=== PATIENT | female | born 1975 | race American Indian/Alaskan Native ===

== ENCOUNTER 2017-01-15 12:08 | Inpatient (IN) | payer OTHER ==
[2017-01-15] MEDS ORDERED: Sodium Chloride 0.9% 1,000 ML IV ONE (13:10)
[2017-01-15] MEDS ORDERED: Sodium Chloride 0.9% 1,000 ML ONE (13:21)
[2017-01-15 13:34] LABS: CHLORIDE 98 mmol/L (98-107); POTASSIUM 4.1 mmol/L (3.6-5.2); SODIUM 136 mmol/L (132-148)
[2017-01-15 13:35] LABS: BASO % 0.5 % (0.0-2.0); EOS # 0.7 K/uL (0.0-0.7); EOS % 7.6 % (0.0-4.0); HEMATOCRIT 29.5 % (34.0-47.0); LYMPH # 1.5 K/uL (1.0-4.3); LYMPH % 16.8 % (20.0-40.0); MEAN CELL VOLUME 89.8 fL (81.0-99.0); MEAN CORPUSCULAR HEMOGLOBIN 29.3 pg (27.0-31.0); MEAN CORPUSCULAR HGB CONC 32.6 g/dL (33.0-37.0); MEAN PLATELET VOLUME 9.1 fL (7.2-11.7); MONO # 0.6 K/uL (0.0-0.8); MONO % 6.4 % (0.0-10.0); RED CELL DISTRIBUTION WIDTH 12.7 % (11.5-14.5); WHITE BLOOD COUNT 9.1 K/uL (4.8-10.8)
[2017-01-15 13:36] LABS: BILIRUBIN,TOTAL 0.9 mg/dL (0.2-1.3); CARBON DIOXIDE 26 mmol/L (22-30); GFR AFRICAN-AMERICAN > 60
[2017-01-15 13:37] LABS: ALKALINE PHOSPHATASE 61 U/L (38-126); ALT/SGPT 20 U/L (9-52); AST/SGOT 30 U/L (14-36); BLOOD UREA NITROGEN 5 mg/dL (7-17); CALCIUM 8.9 mg/dl (8.6-10.4); GLUCOSE,RANDOM 91 mg/dL (65-105); TOTAL PROTEIN 7.4 g/dL (6.3-8.3)
[2017-01-15 13:43] LABS: INR 1.1
--- NOTE | 2017-01-15 13:47 | C.PDOC ---
History Of Present Illness 41 y/o female presents to ED with complaints of abdominal pain for 1 week. Patient had a hysterectomy and surgery for a small bowel laceration [address] Fields and Elsy. POD [address] Fields, but now abdominal pain increased, distention and N/V with subjective chills have developed. Patient denies fever, diarrhea, blood in stool or any other complaints at this time. Last meal 2 days ago. Time Seen by Provider: 01/15/17 13:04 Chief Complaint (Nursing): Abdominal Pain History Per: Patient History/Exam Limitations: no limitations Onset/Duration Of Symptoms: Days Current Symptoms Are (Timing): Still Present Quality Of Discomfort: "Pain" Associated Symptoms: Nausea, Vomiting. denies: Urinary Symptoms Past Medical History Reviewed: Historical Data, Nursing Documentation, Vital Signs Vital Signs: Last Vital Signs Temp 98.9 F 01/15/17 17:12 Pulse 100 H 01/15/17 17:12 Resp 20 01/15/17 17:12 BP 142/91 H 01/15/17 17:12 Pulse Ox 99 01/15/17 17:12 - Medical History PMH: Obstructive Bowel (SBO) Family History: States: No Known Family Hx - Social History Hx Alcohol Use: Yes Hx Substance Use: No - Immunization History Hx Tetanus Toxoid Vaccination: Yes Hx Influenza Vaccination: No Hx Pneumococcal Vaccination: Yes Review Of Systems Except As Marked, All Systems Reviewed And Found Negative. Constitutional: Positive for: Chills. Negative for: Fever Gastrointestinal: Positive for: Nausea, Vomiting, Abdominal Pain. Negative for : Diarrhea Genitourinary: Negative for: Dysuria Skin: Negative for: Rash Neurological: Negative for: Weakness, Headache Physical Exam - Physical Exam Appears: Other (Moderate Distress) Skin: Warm Head: Atraumatic, Normacephalic Oral Mucosa: Moist Neck: Normal ROM Gastrointestinal/Abdominal: Tenderness, Distention, Other (x5 healed laproscopy sites and midline laparotomy incision with multiple galileo, no fluctuance or erythema ) Extremity: Normal ROM, Capillary Refill (<2 seconds) Neurological/Psych: Oriented x3, Normal Speech ED Course And Treatment - Laboratory Results Result Diagrams: 01/15/17 13:18 01/15/17 13:18 Lab Interpretation: Normal (opiates from Percocet and morp) Urine POC: Negative O2 Sat by Pulse Oximetry: 100 (RA) Pulse Ox Interpretation: Normal - Other Rad L leg US X-Ray: Read By Radiologist (no DVT L femoral vein area.) Progress Note: 1530: NGT to R narmaribel for 100 cc yellowish stomach liquid, well tolerated, no complications Reevaluation Time: 15:32 Reassessment Condition: Improved - Physician Consult Information Outcome Of Conversation: 1300 and 1430 d/w Dr. Fields in ED- ok to admit his service. Medical Decision Making Medical Decision Making: recurrent sbo and typical post-surgical changes from lap hysterectomy converted to open laparotomy for ? bowel injury ? related to post-op ilius vs recurrent sbo. h/o SBO No DVT on L leg US- no lovenox required. Disposition Doctor Will See Patient In The: Hospital Counseled Patient/Family Regarding: Studies Performed, Diagnosis - Disposition Disposition: HOSPITALIZED Disposition Time: 15:33 Condition: GOOD - Clinical Impression Clinical Impression: Small bowel obstruction - Scribe Statement The provider has reviewed the documentation as recorded by the Vicente Trinh All medical record entries made by the Vicente were at my direction and personally dictated by me. I have reviewed the chart and agree that the record accurately reflects my personal performance of the history, physical exam, medical decision making, and the department course for this patient. I have also personally directed, reviewed, and agree with the discharge instructions and disposition.
[2017-01-15] MEDS ORDERED: Iodixanol 320 MG/ML 100 ML BOTTLE IV ONE (14:03)
[2017-01-15 14:27] LABS: RBC URINE 11 /hpf (0-3); URINE BILIRUBIN NEGATIVE (NEGATIVE); URINE BLOOD 1+ (NEGATIVE); URINE COLOR Yellow (YELLOW); URINE GLUCOSE (UA) NORMAL (Normal); URINE KETONE 2+ mg/dL (NEGATIVE); URINE LEUKOCYTE ESTERASE TRACE Leu/uL (Negative); URINE PROTEIN NEGATIVE (NEGATIVE); URINE UROBILINOGEN NORMAL mg/dL (0.2-1.0); WBC URINE 7 /hpf (0-5)
[2017-01-15] MEDS ORDERED: Dextrose 5%/0.9% NS 1,000 ML IV SCH (14:45)
--- NOTE | 2017-01-15 15:12 | CT ---
EXAM: CT Abdomen and Pelvis With Intravenous Contrast CLINICAL HISTORY: 41 years old, female; Pain; Abdominal pain; Generalized; Prior surgery; Surgery date: 3-7 days post-operative; Surgery type: Hysterectomy and sbo one week ago; Additional info: S/P sbo surg and hyst 1 wk ago, ? sbo/abscess TECHNIQUE: Axial computed tomography images of the abdomen and pelvis with intravenous contrast. This CT exam was performed using one or more of the following dose reduction techniques: automated exposure control, adjustment of the mA and/or kV according to patient size, and/or use of iterative reconstruction technique. Coronal and sagittal reformatted images were created and reviewed. CONTRAST: 100 mL of VISIPAQUE administered intravenously. EXAM DATE/TIME: Exam ordered 01/15/2017 1:11 PM COMPARISON: No relevant prior studies available. FINDINGS: Lower thorax: No acute findings. ABDOMEN: Liver: A 1.9 cm hypodense mass in the anterior superior segment of the right lobe of the liver. Suggestion of nodular enhancement is seen along the superior aspect of the mass suggesting this could be a hemangioma. Gallbladder and bile ducts: Unremarkable. No calcified stones. No ductal dilation. Pancreas: Unremarkable. No mass. No ductal dilation. Spleen: Unremarkable. No splenomegaly. Adrenals: Unremarkable. No mass. Kidneys and ureters: The 7 mm hypodense mass is noted in the lower pole of the left kidney. It's too small to fully characterize. Stomach and bowel: There is a loculated fluid collection noted within the pelvis surrounding the sigmoid colon and extending posteriorly into the prerectal soft tissues. The fluid collection measures approximately 6.3 x 6.9 x 3.5 cm. No obstruction. No mucosal thickening. Appendix: No findings to suggest acute appendicitis. PELVIS: Bladder: Unremarkable. No mass. Reproductive: Unremarkable as visualized. ABDOMEN and PELVIS: Intraperitoneal space: There is a trace amount of perihepatic ascites is noted. No free air. Surgical clips are noted within the abdomen Bones/joints: No acute fracture. No dislocation. Soft tissues: There is a healing midline abdominal incision. A 1 cm area of low density is noted along the inferior aspect of the incision suggesting a small amount of fluid within the incision. Surgical galileo are noted along the skin of the anterior abdominal wall at the level of the incision. 2 tiny pockets of gas are noted within the soft tissues of the left groin. This could be iatrogenic. Vasculature: Low density is noted within the left common femoral vein and proximal superficial femoral vein. This could be admixture affect the underlying thrombosis is not excluded No abdominal aortic aneurysm. Lymph nodes: Moderately distended fluid containing small bowel loops are present. Fluid is noted within the cecum and ascending colon. Transverse and descending colon are relatively decompressed. Scattered para-aortic retroperitoneal lymph nodes are noted measuring approximately 7 mm in short axis. IMPRESSION: 1. Abscess in the pelvis. 2. Postsurgical changes in the anterior abdominal wall. Small pocket of fluid measuring approximately 1 cm is noted within the incision along its inferior border 3. Dilated small bowel loops suggest ileus or partial small bowel obstruction 4. A 1.9 cm mass within the liver. Early enhancement suggests the possibility of a hemangioma but I cannot confirm that on this examination. 5. 7 mm hypodense mass in the lower pole the left kidney too small to fully characterize. 6. Possibility of a small deep vein thrombosis in the left common femoral vein and superficial femoral vein. This could also be venous admixture artifacts. Ultrasound might be considered Images were attached to this report and are available at [email or web address]
[2017-01-15] MEDS ORDERED: HYDROmorphone 0.5 mg/0.5 ml ISec IVP PRN (17:17)
--- NOTE | 2017-01-15 17:38 | CP.PCM.HP ---
History of Present Illness - History of Present Illness History of Present Illness: Surgery: Dr. Fields CC: Abd pain HPI: 41F w underwent robotic hysterectomy on 01/08 which was complicated by enterotomy which required ex-lap for closeure. Pt was D/C home on 01/17. Since D/ C, pt stats that she has had constant gas pain from bloating described as pressure. She states that nothing relieves her symptoms. Pt was passing flatus and having BM up until her arrival at hospital today. Last BM was yesterday, which was diarrhea. Pt states that after arriving to ED she became nasuea and had one episode of emesis, NBNB. She denies fever, reports chills. No TAYLOR/ blurred vision, no CP/palpitations, no SOB/cough. In ED CT was done which showed ileus vs SBO and pelvic abscess. NGT was placed in ED as well. PMH: MVP PSH: Hysterectomy Meds: MAR reviewed ALL: gluten Social: Social ETOH, no tobacco/drugs Fhx: non-contributory Present on Admission - Present on Admission Any Indicators Present on Admission: No Review of Systems - Review of Systems All systems: reviewed and no additional remarkable complaints except (HPI) Past Patient History - Infectious Disease Hx of Infectious Diseases: None - Past Social History Smoking Status: Never Smoked - GASTROINTESTINAL Hx Gastrointestinal Disorders: Yes - PSYCHIATRIC Hx Substance Use: No - SURGICAL HISTORY Hx Surgeries: Yes Other/Comment: Myomectomy X2. SBO X2 Meds Allergies/Adverse Reactions: Allergies Allergy/AdvReac Type Severity Reaction Status Date / Time gluten Allergy Verified 01/15/17 12:42 Physical Exam - Constitutional Appears: Non-toxic, No Acute Distress, Other (uncomfortable) - Head Exam Head Exam: ATRAUMATIC, NORMOCEPHALIC - Eye Exam Eye Exam: EOMI - ENT Exam ENT Exam: Mucous Membranes Moist, Normal External Ear Exam - Neck Exam Neck exam: Positive for: Full Rom - Respiratory Exam Respiratory Exam: NORMAL BREATHING PATTERN. absent: Accessory Muscle Use, Respiratory Distress - GI/Abdominal Exam GI & Abdominal Exam: Distended, Firm, Soft, Tenderness. absent: Rebound, Rigid Additional comments: incisions C/D/I - Extremities Exam Extremities exam: Negative for: calf tenderness, pedal edema - Neurological Exam Neurological exam: Alert, Oriented x3 Results - Vital Signs Recent Vital Signs: Last Vital Signs Temp 98.5 F 01/15/17 16:38 Pulse 90 01/15/17 16:38 Resp 20 01/15/17 16:38 BP 131/84 01/15/17 16:38 Pulse Ox 100 01/15/17 16:41 - Labs Result Diagrams: 01/15/17 13:18 01/15/17 13:18 - Imaging and Cardiology CT scan - abdomen Status: Image reviewed by me, Report reviewed by me Assessment & Plan - Assessment and Plan (Free Text) Assessment: 41F s/p hysterectomy w. enterotomy on 01/08, now w. SBO/ileus and pelvic abscess -NPO -To be evaluated by Dr. Dhiraj ALBA in AM -NPO -NGT low intermittent suction, monitor output -IVF -pain meds -zofran -serial abd exams -GI/dvt prophylaxis -d/w attending Robertomaitis PGY2
[2017-01-15] MEDS: Sodium Chloride 0.9% 1,000 ML IV SCH (18:09)
[2017-01-15] MEDS ORDERED: DiphenhydrAMINE 50 mg/ml Inj IVP STA (22:53)
[2017-01-16] MEDS: Sodium Chloride 0.9% 1,000 ML IV SCH ×3 (02:30→20:41)
[2017-01-16 06:48] LABS: CHLORIDE 103 mmol/L (98-107); POTASSIUM 3.6 mmol/L (3.6-5.2); SODIUM 140 mmol/L (132-148)
[2017-01-16 06:50] LABS: ALB/GLOB RATIO 1.1 (1.0-2.1); AST/SGOT 17 U/L (14-36); BILIRUBIN,TOTAL 0.5 mg/dL (0.2-1.3); CARBON DIOXIDE 24 mmol/L (22-30); GFR AFRICAN-AMERICAN > 60
[2017-01-16 06:51] LABS: ALKALINE PHOSPHATASE 59 U/L (38-126); ALT/SGPT 26 U/L (9-52); BLOOD UREA NITROGEN 7 mg/dL (7-17); CALCIUM 8.3 mg/dl (8.6-10.4); GLUCOSE,RANDOM 73 mg/dL (65-105)
[2017-01-16 07:05] LABS: HEMATOCRIT 26.3 % (34.0-47.0); MEAN CELL VOLUME 90.2 fL (81.0-99.0); MEAN CORPUSCULAR HEMOGLOBIN 29.5 pg (27.0-31.0); MEAN CORPUSCULAR HGB CONC 32.7 g/dL (33.0-37.0); MEAN PLATELET VOLUME 8.5 fL (7.2-11.7); RED CELL DISTRIBUTION WIDTH 12.9 % (11.5-14.5); WHITE BLOOD COUNT 8.4 K/uL (4.8-10.8)
[2017-01-16] MEDS ORDERED: Benzocaine/Menthol (Cepacol) Lozenge MT PRN (07:43)
--- NOTE | 2017-01-16 08:57 | CP.PCM.PN ---
Subjective - Date & Time of Evaluation Date of Evaluation: 01/16/17 Time of Evaluation: 08:55 - Subjective Subjective: Surgery: Dr. Fields Pt seen and examined. Had issues w. NGT over night. NGT was pulled back ~10cm, appears to be working. She states that abd pain persists. Nausea improved, no vomiting. Still no flatus/BM. Objective - Vital Signs/Intake and Output Vital Signs (last 24 hours): Temp Pulse Resp BP Pulse Ox 98.6 F 93 H 20 121/68 96 01/16/17 07:17 01/16/17 07:17 01/16/17 07:17 01/16/17 07:17 01/16/17 07:17 Intake and Output: 01/16/17 01/16/17 06:59 18:59 Intake Total 575 920 Output Total 0 25 Balance 575 895 - Medications Medications: Current Medications Acetaminophen (Tylenol 650 Mg Supp) 650 mg VT Q6 PRN PRN Reason: Headache Benzocaine/Menthol (Cepacol Sore Throat) 1 devora MT Q2H PRN PRN Reason: Sore Throat Famotidine (Pepcid) 20 mg IVP Q12 [facility] Last Admin: 01/15/17 21:20 Dose: 20 mg Hydromorphone HCl (Dilaudid) 0.5 mg IVP Q4H PRN PRN Reason: Pain, moderate (4-7) Sodium Chloride (Sodium Chloride 0.9%) 1,000 mls @ 115 mls/hr IV .Q8H42M [facility] Last Admin: 01/16/17 02:30 Dose: 115 mls/hr Ketorolac Tromethamine (Toradol) 30 mg IVP Q6 PRN PRN Reason: Pain, moderate (4-7) Stop: 01/18/17 21:04 Last Admin: 01/16/17 05:44 Dose: 30 mg Ondansetron HCl (Zofran Inj) 4 mg IVP Q4 PRN PRN Reason: Nausea/Vomiting Last Admin: 01/15/17 19:11 Dose: 4 mg - Labs Labs: 01/16/17 06:22 01/16/17 06:22 PT 12.3 SECONDS (9.7-12.2) H 01/15/17 13:18 INR 1.1 01/15/17 13:18 APTT 30 SECONDS (21-34) 01/15/17 13:18 - Constitutional Appears: Non-toxic, No Acute Distress - Head Exam Head Exam: ATRAUMATIC, NORMOCEPHALIC - Eye Exam Eye Exam: EOMI - ENT Exam ENT Exam: Mucous Membranes Moist - Neck Exam Neck Exam: Full ROM - Respiratory Exam Respiratory Exam: NORMAL BREATHING PATTERN. absent: Accessory Muscle Use, Respiratory Distress - GI/Abdominal Exam GI & Abdominal Exam: Soft, Tenderness (diffuse). absent: Distended, Firm, Guarding, Rigid, Rebound Additional comments: incisions C/D/I - Extremities Exam Extremities Exam: absent: Calf Tenderness, Pedal Edema - Neurological Exam Neurological Exam: Alert, Oriented x3 Assessment and Plan - Assessment and Plan (Free Text) Assessment: 41F s/p hysterectomy w. enterotomy on 01/08, now w. SBO/ileus and pelvic abscess -Pt to be seen by Dr. Hearn for possible IR drainage of pelvic collection -continue w. conservative management -NPO -IVF -pain meds -zofran -NGT 25cc/24hr yellowish, continue to monitor -serial abd exams -monitor bowel fxn -d/w attending Zemaitis PGY2
--- NOTE | 2017-01-16 09:19 | PCM.IRP ---
Objective - Vital Signs/Intake and Output Vital Signs (last 24 hours): Vital Signs - 24 hr 01/15/17 01/15/17 01/15/17 14:40 16:38 17:12 Temperature 99.1 F 98.5 F 98.9 F Pulse Rate 87 90 100 H Respiratory 20 20 20 Rate Blood Pressure 122/78 131/84 142/91 H O2 Sat by Pulse 98 98 99 Oximetry 01/15/17 01/16/17 01/16/17 23:40 00:19 07:17 Temperature 99.4 F 98.6 F Pulse Rate 94 H 93 H Respiratory 20 20 Rate Blood Pressure 137/86 121/68 O2 Sat by Pulse 95 100 96 Oximetry Intake and Output (last 12 hours): Intake & Output 01/15/17 01/16/17 01/16/17 18:59 06:59 18:59 Intake Total 575 920 Output Total 0 25 Balance 575 895 Intake: Intake, IV Amount 575 920 Left Antecubital 575 920 Output: Gastric Amount 0 25 Right Nares 0 25 Other: # Voids Urine, Voided 1 - Medications Medications: Current Medications Acetaminophen (Tylenol 650 Mg Supp) 650 mg CA Q6 PRN PRN Reason: Headache Benzocaine/Menthol (Cepacol Sore Throat) 1 devora MT Q2H PRN PRN Reason: Sore Throat Famotidine (Pepcid) 20 mg IVP Q12 [facility] Last Admin: 01/15/17 21:20 Dose: 20 mg Hydromorphone HCl (Dilaudid) 0.5 mg IVP Q4H PRN PRN Reason: Pain, moderate (4-7) Sodium Chloride (Sodium Chloride 0.9%) 1,000 mls @ 115 mls/hr IV .Q8H42M [facility] Last Admin: 01/16/17 02:30 Dose: 115 mls/hr Ketorolac Tromethamine (Toradol) 30 mg IVP Q6 PRN PRN Reason: Pain, moderate (4-7) Stop: 01/18/17 21:04 Last Admin: 01/16/17 05:44 Dose: 30 mg Ondansetron HCl (Zofran Inj) 4 mg IVP Q4 PRN PRN Reason: Nausea/Vomiting Last Admin: 01/15/17 19:11 Dose: 4 mg - Labs Labs (last 24 hours): Laboratory Results - last 24 hr 01/16/17 01/16/17 06:22 06:22 WBC 8.4 RBC 2.91 L Hgb 8.6 L Hct 26.3 L MCV 90.2 MCH 29.5 MCHC 32.7 L RDW 12.9 Plt Count 279 MPV 8.5 Sodium 140 Potassium 3.6 Chloride 103 Carbon Dioxide 24 Anion Gap 16 BUN 7 Creatinine 0.8 Est GFR ( Amer) > 60 Est GFR (Non-Af Amer) > 60 Random Glucose 73 Calcium 8.3 L Total Bilirubin 0.5 AST 17 ALT 26 Alkaline Phosphatase 59 Total Protein 6.0 L Albumin 3.1 L Globulin 2.9 Albumin/Globulin Ratio 1.1 Assessment/Plan - Assessment and Plan (Free Text) Assessment: 41 y/o female with recent history of hysterectomy presents with abdominal pain and no BM. Plan: I have reviewed the CTAP. There is a small fluid collection in the pelvis with loops of large and small bowel within it. The distal colon appears collapsed. In my opinion there is no safe percutaneous window to drain the pelvic fluid. I have spoken to Dr. Rhodes about the case, who agrees. Please consider a repeat CT in 48 hours if conditions deteriorate. Please reconsult as and when required.
--- NOTE | 2017-01-16 10:13 | RAD ---
PROCEDURE: CHEST RADIOGRAPH, 1 VIEW HISTORY: eval ngt placement/SBO COMPARISON: None available. FINDINGS: LUNGS: NG tube extending into the stomach. Mild venous congestion. PLEURA: No pneumothorax or pleural fluid seen. CARDIOVASCULAR: Normal. OSSEOUS STRUCTURES: No significant abnormalities. VISUALIZED UPPER ABDOMEN: Normal. OTHER FINDINGS: None. IMPRESSION: NG tube extending into the stomach. Mild venous congestion.
--- NOTE | 2017-01-16 11:30 | RAD ---
Abdomen single frontal view History: Small bowel obstruction. Comparison: None available. Findings: NG tube extending into the stomach. Multiple dilated loops of small bowel seen within the left saba abdomen. Lobulated radiopaque densities project over the right renal fossa which may represent contrast within the collecting system. Contrast seen within the urinary bladder. Small amount of air seen within the right hemicolon. Surgical clips project over the midline abdomen. Impression: Persistent prominent dilatation of small bowel concerning for obstruction or ileus.
[2017-01-17] MEDS: Sodium Chloride 0.9% 1,000 ML IV SCH ×2 (05:45→14:25)
[2017-01-17 09:00] LABS: HEMATOCRIT 24.8 % (34.0-47.0); MEAN CORPUSCULAR HEMOGLOBIN 29.1 pg (27.0-31.0); MEAN CORPUSCULAR HGB CONC 32.4 g/dL (33.0-37.0); MEAN PLATELET VOLUME 8.5 fL (7.2-11.7)
[2017-01-17 09:08] LABS: CHLORIDE 106 mmol/L (98-107); POTASSIUM 3.6 mmol/L (3.6-5.2); SODIUM 141 mmol/L (132-148)
[2017-01-17 09:10] LABS: GFR AFRICAN-AMERICAN > 60
[2017-01-17 09:11] LABS: BLOOD UREA NITROGEN 7 mg/dL (7-17); CALCIUM 8.3 mg/dl (8.6-10.4); CARBON DIOXIDE 25 mmol/L (22-30); GLUCOSE,RANDOM 76 mg/dL (65-105)
--- NOTE | 2017-01-17 09:18 | CP.PCM.PN ---
Subjective - Date & Time of Evaluation Date of Evaluation: 01/17/17 Time of Evaluation: 09:15 - Subjective Subjective: SURGERY NOTE FOR DR. CHANDRA 41F seen and examined at bedside. Patient states she has now passed gas. Has been tolerating liquid diet. Continues to have spit up. Objective - Vital Signs/Intake and Output Vital Signs (last 24 hours): Temp Pulse Resp BP Pulse Ox 98.3 F 100 H 20 145/91 H 97 01/17/17 00:19 01/17/17 00:19 01/17/17 00:19 01/17/17 00:19 01/17/17 00:19 Intake and Output: 01/17/17 01/17/17 06:59 18:59 Intake Total 1340 Balance 1340 - Medications Medications: Current Medications Acetaminophen (Tylenol 650 Mg Supp) 650 mg NV Q6 PRN PRN Reason: Headache Benzocaine/Menthol (Cepacol Sore Throat) 1 devora MT Q2H PRN PRN Reason: Sore Throat Famotidine (Pepcid) 20 mg IVP Q12 [facility] Last Admin: 01/16/17 21:18 Dose: 20 mg Sodium Chloride (Sodium Chloride 0.9%) 1,000 mls @ 115 mls/hr IV .Q8H42M [facility] Last Admin: 01/17/17 05:45 Dose: 115 mls/hr Ketorolac Tromethamine (Toradol) 30 mg IVP Q6 PRN PRN Reason: Pain, moderate (4-7) Stop: 01/18/17 21:04 Last Admin: 01/16/17 17:32 Dose: 30 mg Ondansetron HCl (Zofran Inj) 4 mg IVP Q4 PRN PRN Reason: Nausea/Vomiting Last Admin: 01/15/17 19:11 Dose: 4 mg - Labs Labs: 01/17/17 08:51 PT 12.3 SECONDS (9.7-12.2) H 01/15/17 13:18 INR 1.1 01/15/17 13:18 APTT 30 SECONDS (21-34) 01/15/17 13:18 - Constitutional Appears: Non-toxic, No Acute Distress - Respiratory Exam Respiratory Exam: Clear to Ausculation Bilateral, NORMAL BREATHING PATTERN - Cardiovascular Exam Cardiovascular Exam: REGULAR RHYTHM, +S1, +S2 - GI/Abdominal Exam GI & Abdominal Exam: Distended, Soft. absent: Firm, Guarding, Rigid, Tenderness Additional comments: NGT in place - Neurological Exam Neurological Exam: Alert, Awake Assessment and Plan - Assessment and Plan (Free Text) Assessment: 41F s/p hysterectomy w. enterotomy on 01/08, now w. SBO/ileus and pelvic fluid collection(not drain-able) -continue w. conservative management -CLD -IVF -pain meds -zofran -serial abd exams -monitor bowel fxn -consider removal of NGT today Further recs discuss with Dr. Donnie Wharton, PGY1
--- NOTE | 2017-01-17 10:42 | VASCLAB ---
PROCEDURE: Left Lower Extremity Venous Duplex Exam. HISTORY: ? L femoral vein DVT (s/p pelvic surgery) PRIORS: None. TECHNIQUE: Left common femoral, femoral, popliteal and posterior tibial, peroneal and great saphenous veins were evaluated. Flow was assessed with color Doppler, compressibility, assessment of phasic flow and augmentation response. Report prepared by Jethro Roman, MITCH, RVT FINDINGS: LEFT: 1. Common Femoral Vein: 1.1. Compressibility - Fully compressible: Thrombus - None : Flow - Phasic: Augmentation -Normal: Reflux - None. 2. Femoral Vein: 2.1. Compressibility - Fully compressible: Thrombus - None: Flow - Phasic: Augmentation -Normal: Reflux - None. 3. Popliteal Vein: 3.1. Compressibility - Fully compressible: Thrombus - None: Flow - Phasic: Augmentation -Normal: Reflux - None. 4. Posterior Tibial Vein: 4.1. Compressibility - Fully compressible: Thrombus - None: Flow - Phasic: Augmentation -Normal: Reflux - None. 5. Peroneal Vein: 5.1. Compressibility - Fully compressible: Thrombus - None: Flow - Phasic: Augmentation -Normal: Reflux - None. 6. Great Saphenous Vein: 6.1. Compressibility - Fully compressible: Thrombus - None: Flow - Phasic: Augmentation - Normal: Reflux - None. OTHER FINDINGS: IMPRESSION: No evidence of deep or superficial vein thrombosis of the left lower extremity with excellent venous flow. Normal valve function noted of the left side. Normal venous flow noted in the right common femoral vein.
[2017-01-18 00:02] VITALS: TEMP 98.4
--- NOTE | 2017-01-18 06:40 | CP.PCM.DIS ---
Provider - Provider Date of Admission: 01/16/17 13:33 Attending physician: Henry Fields Jr, MD Consults: Dr. Chin - INFORMATION SECURITY Time Spent in preparation of Discharge (in minutes): 30 Diagnosis - Discharge Diagnosis (1) Small bowel obstruction Status: Acute Hospital Course - Lab Results Lab Results: Most Recent Lab Values WBC 10.0 K/uL (4.8-10.8) 01/17/17 08:51 RBC 2.76 Mil/uL (3.80-5.20) L 01/17/17 08:51 Hgb 8.0 g/dL (11.0-16.0) L 01/17/17 08:51 Hct 24.8 % (34.0-47.0) L 01/17/17 08:51 MCV 90.0 fL (81.0-99.0) 01/17/17 08:51 MCH 29.1 pg (27.0-31.0) 01/17/17 08:51 MCHC 32.4 g/dL (33.0-37.0) L 01/17/17 08:51 RDW 13.0 % (11.5-14.5) 01/17/17 08:51 Plt Count 292 K/uL (130-400) 01/17/17 08:51 MPV 8.5 fL (7.2-11.7) 01/17/17 08:51 Neut % (Auto) 68.7 % (50.0-75.0) 01/15/17 13:18 Lymph % (Auto) 16.8 % (20.0-40.0) L 01/15/17 13:18 [place] % (Auto) 6.4 % (0.0-10.0) 01/15/17 13:18 Eos % (Auto) 7.6 % (0.0-4.0) H 01/15/17 13:18 Baso % (Auto) 0.5 % (0.0-2.0) 01/15/17 13:18 Neut # 6.2 K/uL (1.8-7.0) 01/15/17 13:18 Lymph # 1.5 K/uL (1.0-4.3) 01/15/17 13:18 [place] # 0.6 K/uL (0.0-0.8) 01/15/17 13:18 Eos # 0.7 K/uL (0.0-0.7) 01/15/17 13:18 Baso # 0.0 K/uL (0.0-0.2) 01/15/17 13:18 PT 12.3 SECONDS (9.7-12.2) H 01/15/17 13:18 INR 1.1 01/15/17 13:18 APTT 30 SECONDS (21-34) 01/15/17 13:18 Sodium 141 mmol/L (132-148) 01/17/17 08:51 Potassium 3.6 mmol/L (3.6-5.2) 01/17/17 08:51 Chloride 106 mmol/L (98-107) 01/17/17 08:51 Carbon Dioxide 25 mmol/L (22-30) 01/17/17 08:51 Anion Gap 14 (10-20) 01/17/17 08:51 BUN 7 mg/dL (7-17) 01/17/17 08:51 Creatinine 0.7 MG/DL (0.7-1.2) 01/17/17 08:51 Est GFR ( Amer) > 60 01/17/17 08:51 Est GFR (Non-Af Amer) > 60 01/17/17 08:51 Random Glucose 76 mg/dL (65-105) 01/17/17 08:51 Calcium 8.3 mg/dl (8.6-10.4) L 01/17/17 08:51 Total Bilirubin 0.5 mg/dL (0.2-1.3) 01/16/17 06:22 AST 17 U/L (14-36) 01/16/17 06:22 ALT 26 U/L (9-52) 01/16/17 06:22 Alkaline Phosphatase 59 U/L (38-126) 01/16/17 06:22 Total Protein 6.0 g/dL (6.3-8.3) L 01/16/17 06:22 Albumin 3.1 g/dL (3.5-5.0) L 01/16/17 06:22 Globulin 2.9 gm/dL (2.2-3.9) 01/16/17 06:22 Albumin/Globulin Ratio 1.1 (1.0-2.1) 01/16/17 06:22 Lipase < 10 U/L (23-300) L 01/15/17 13:18 Urine Color Yellow (YELLOW) 01/15/17 14:12 Urine Clarity Clear (Clear) 01/15/17 14:12 Urine pH 7.0 (5.0-8.0) 01/15/17 14:12 Ur Specific Coulter 1.009 (1.003-1.030) 01/15/17 14:12 Urine Protein Negative mg/dL (NEGATIVE) 01/15/17 14:12 Urine Glucose (UA) Normal mg/dL (Normal) 01/15/17 14:12 Urine Ketones 2+ mg/dL (NEGATIVE) H 01/15/17 14:12 Urine Blood 1+ (NEGATIVE) H 01/15/17 14:12 Urine Nitrate Negative (NEGATIVE) 01/15/17 14:12 Urine Bilirubin Negative (NEGATIVE) 01/15/17 14:12 Urine Urobilinogen Normal mg/dL (0.2-1.0) 01/15/17 14:12 Ur Leukocyte Esterase Trace Anastasia/uL (Negative) 01/15/17 14:12 Urine WBC (Auto) 7 /hpf (0-5) H 01/15/17 14:12 Urine RBC (Auto) 11 /hpf (0-3) H 01/15/17 14:12 Ur Squamous Epith Cells 13 /hpf (0-5) H 01/15/17 14:12 Urine Opiates Screen Positive (NEGATIVE) 01/15/17 14:12 Urine Methadone Screen Negative (NEGATIVE) 01/15/17 14:12 Ur Barbiturates Screen Negative (NEGATIVE) 01/15/17 14:12 Ur Phencyclidine Scrn Negative (NEGATIVE) 01/15/17 14:12 Ur Amphetamines Screen Negative (NEGATIVE) 01/15/17 14:12 U Benzodiazepines Scrn Negative (NEGATIVE) 01/15/17 14:12 U Oth Cocaine Metabols Negative (NEGATIVE) 01/15/17 14:12 U Cannabinoids Screen Negative (NEGATIVE) 01/15/17 14:12 - Hospital Course Hospital Course: 41F w underwent robotic hysterectomy on 01/08 which was complicated by enterotomy which required ex-lap for closeure. Initially pt responded well and was D/C home without issue. Pt then returned w. acute onset abd pain w. N/V. CT scan showed findings consistent w. SBO. Pt was admitted to hospital and conservative management was initiated w. bowel rest and NGT placement. Pt responded well. Diet was slowly advanced and it was tolerated w. passing flatus and having BM. This AM diet was advanced from soft regular to full regular. If diet is tolerated pt will be clear for d/c. Discharge Exam - Head Exam Head Exam: ATRAUMATIC, NORMOCEPHALIC - Eye Exam Eye Exam: EOMI - ENT Exam ENT Exam: Mucous Membranes Moist - Neck Exam Neck exam: Full Rom - Respiratory Exam Respiratory Exam: NORMAL BREATHING PATTERN. absent: Accessory Muscle Use, Respiratory Distress - GI/Abdominal Exam GI & Abdominal Exam: Soft. absent: Distended, Firm, Guarding, Rebound, Rigid, Tenderness Additional comments: incisions C/D/I - Neurological Exam Neurological exam: Alert, Oriented x3 - Psychiatric Exam Psychiatric exam: Normal Affect, Normal Mood Discharge Plan - Follow Up Plan Condition: GOOD Disposition: HOME/ ROUTINE Patient education suggested?: Yes Instructions: Bowel Obstruction (GEN) Additional Instructions: Follow up w. Dr. Fields in 1-2 weeks. Resume activity as tolerated. If questions or concerns arise, return to ED. Referrals: Henry Fields Jr., MD [Staff Provider] -
--- NOTE | 2017-01-18 10:54 | CP.PCM.CON ---
History of Present Illness - History of Present Illness History of Present Illness: 41 year old female with a history of menorrhagia secondary to uterine fibroids s /p hysterectomy complicated by enterotomy, admitted with small bowel obstruction , found to have progressive anemia. The patient reports to prior transfusion dependence due to severe iron deficiency. Since her hysterectomy, she denies abnormal bleeding. Past medical history: Iron deficiency anemia Past surgical history: Myomectomy, hysterectomy Family history: Denies hematologic and oncologic problems Social history: Denies tobacco, alcohol, and illicit drug use. Allergies: NKDA Review of systems: All remaining review of systems including HEENT, cardiovascular, respiratory, gastrointestinal, genitourinary, musculoskeletal, dermatologic, neurologic, and psychiatric are negative unless mentioned in the HPI. Past Patient History - Infectious Disease Hx of Infectious Diseases: None - Past Medical History & Family History Past Medical History?: Yes - Past Social History Smoking Status: Never Smoked - CARDIAC Hx Cardiac Disorders: Yes Hx Mitral Valve Prolapse: Yes - PULMONARY Hx Respiratory Disorders: No - NEUROLOGICAL Hx Neurological Disorder: No - HEENT Hx HEENT Problems: No - RENAL Hx Chronic Kidney Disease: No - ENDOCRINE/METABOLIC Hx Endocrine Disorders: No - HEMATOLOGICAL/ONCOLOGICAL Hx Blood Disorders: No - INTEGUMENTARY Hx Dermatological Problems: No - MUSCULOSKELETAL/RHEUMATOLOGICAL Hx Musculoskeletal Disorders: No Hx Falls: No - GASTROINTESTINAL Hx Gastrointestinal Disorders: Yes Hx Bowel Surgery: Yes - GENITOURINARY/GYNECOLOGICAL Hx Genitourinary Disorders: No - PSYCHIATRIC Hx Substance Use: No - SURGICAL HISTORY Hx Surgeries: Yes Other/Comment: Myomectomy X2. SBO X2 - ANESTHESIA Hx Anesthesia: Yes Hx Anesthesia Reactions: No Hx Malignant Hyperthermia: No Has any member of the family had a problem w/ anesthesia?: No Meds Allergies/Adverse Reactions: Allergies Allergy/AdvReac Type Severity Reaction Status Date / Time gluten Allergy Verified 01/15/17 12:42 - Medications Medications: Current Medications Acetaminophen (Tylenol 650 Mg Supp) 650 mg UT Q6 PRN PRN Reason: Headache Benzocaine/Menthol (Cepacol Sore Throat) 1 devora MT Q2H PRN PRN Reason: Sore Throat Famotidine (Pepcid) 20 mg IVP Q12 [facility] Last Admin: 01/17/17 21:46 Dose: 20 mg Sodium Chloride (Sodium Chloride 0.9%) 1,000 mls @ 115 mls/hr IV .Q8H42M [facility] Last Admin: 01/17/17 14:25 Dose: 115 mls/hr Ondansetron HCl (Zofran Inj) 4 mg IVP Q4 PRN PRN Reason: Nausea/Vomiting Last Admin: 01/15/17 19:11 Dose: 4 mg Physical Exam - Head Exam Head Exam: ATRAUMATIC - Eye Exam Eye Exam: Normal appearance - ENT Exam ENT Exam: Mucous Membranes Dry - Respiratory Exam Respiratory Exam: NORMAL BREATHING PATTERN - Cardiovascular Exam Cardiovascular Exam: +S1, +S2 - GI/Abdominal Exam GI & Abdominal Exam: Normal Bowel Sounds - Extremities Exam Extremities exam: Positive for: normal inspection - Neurological Exam Neurological exam: Oriented x3 - Psychiatric Exam Psychiatric exam: Normal Affect, Normal Mood - Skin Skin Exam: Warm Results - Vital Signs Recent Vital Signs: Last Vital Signs Temp 98.4 F 01/17/17 23:59 Pulse 83 01/17/17 23:59 Resp 20 01/17/17 23:59 BP 124/79 01/17/17 23:59 Pulse Ox 95 01/17/17 23:59 - Labs Result Diagrams: 01/17/17 08:51 01/17/17 08:51 Labs: Laboratory Results - last 24 hr 01/18/17 01/18/17 08:20 08:20 Retic Count 3.4 H Ferritin 123.0 Vitamin B12 508 Folate 16.0 Assessment & Plan (1) Anemia Assessment and Plan: will check ferritin, retic count, b12, folate to further characterize Thank you for this interesting consult. Status: Acute
[2017-01-18 16:42] VITALS: BP 136/88; PULSE 89; RESP 16; O2SAT 96
== END 2017-01-18 11:10 | disposition home or self-care (01) | DRG 390 ==
LOC: C.ER 12:08 → C.9E 14:39 → C.5T 16:30 → OBSVTOIN 01-16 13:33 → C.5T 01-17 20:31
PROVIDERS: ADMIT Surgery Vascular Surgery; ATTEND Surgery Vascular Surgery
DX: K56.60 Unspecified intestinal obstruction (principal); D50.9 Iron deficiency anemia, unspecified; N73.9 Female pelvic inflammatory disease, unspecified; Z90.710 Acquired absence of both cervix and uterus